=== PATIENT | female | born 1945 | race Native Hawaiian/Other Pacific Islander ===

== ENCOUNTER 2019-08-13 21:15 | Emergency (ER) | payer OTHER ==
[~2019-08-13] VITALS: Ht 149.9 cm; Wt 52.2 kg
[~2019-08-13 21:15] MED LIST: BUDE1AER5 INH; MONTELUKAST SOD10 MG PO; POT CL MICRO20 MEQ PO; PRIMIDONE50 M1 PO; PROPRANOLOL10 MG PO; SPIRIVA HANDIH18 MCG INH; TIROSINT75 MCG PO; TRAZ50TA36 PO; TRAZODONE HYDRO50 MG PO
[2019-08-13] MEDS ORDERED: LORA1TAB17 PO (21:17)
[2019-08-13] MEDS ORDERED: DOK100 MG PO (21:19)
[2019-08-13] MEDS ORDERED: ZOFRAN8 MG PO (21:21)
[2019-08-13] MEDS ORDERED: ENDOCET1 TAB PO (21:22)
[2019-08-13] MEDS ORDERED: BUSPIRONE HYDRO15 MG PO (21:24)
[2019-08-13] MEDS ORDERED: BUDESONIDE0.25 MG/2 INH (21:25)
[2019-08-13] MEDS ORDERED: CITALOPRAM10 M1 PO (21:25)
[2019-08-13] MEDS ORDERED: CITALOPRAM20 MG PO (21:27)
[2019-08-13] MEDS ORDERED: DOXE25CA18 PO (21:28)
[2019-08-13] MEDS ORDERED: MORPHINE PO (21:32)
[2019-08-13 22:19] VITALS: BP 140/68; TEMP 98
== END 2019-08-13 22:31 | disposition other institution (70) ==
LOC: ED 21:15
DX: J44.1 Chronic obstructive pulmonary disease with (acute) exacerbation (principal)
CPT/HCPCS: 83735; 83880; 84484; 94664; 99283